=== PATIENT | male | born 1985 | race Caucasian/White ===

== ENCOUNTER 2020-09-15 17:53 | Emergency (ER) | payer SELFPAY ==
[~2020-09-15] VITALS: Ht 180.3 cm; Wt 95.3 kg
[2020-09-15 18:06] VITALS: BP 140/89
--- NOTE | 2020-09-15 18:32 | NUR ---
34/M C/O LOSS OF TASTE/SMELL, MYALGIAS, NASAL CONGESTION, OCCASIONAL HEADACHE X 2-3 DAYS. STATES CLOSE CONTACT WITH COW[employer]ER WHO TESTED COVID POS ON 09/11. 0 PAIN AT THIS TIME, APPEARS NAD. PT REQUESTING COVID TEST. HX- DENIES NKA
[2020-09-15 18:47] VITALS: BP 140/89
--- NOTE | 2020-09-15 18:47 | NUR ---
Patient discharged with v/s stable. Written and verbal after care instructions given and explained. Patient alert, oriented and verbalized understanding of instructions. Ambulatory with steady gait. All questions addressed prior to discharge. ID band removed. Patient advised to follow up with PMD. Rx of IBUPROFEN AND PROMETHAZINE DM given. Patient educated on indication of medication including possible reaction and side effects. Opportunity to ask questions provided and answered.
--- NOTE | 2020-09-15 19:10 | NUR ---
PER ONUR GUEVARA, CALL PATIENT WITH COVID XIOMARA RESULT--ENDORSED TO [facility] [employer]NA[employer]
--- NOTE | 2020-09-15 19:12 | NUR ---
NOVEL COVID (WITH PAPERWORK) AND COVID XIOMARA SWABS DROPPED OFF AT LAB
== END 2020-09-15 18:47 | disposition home or self-care (01) ==
LOC: MED 17:53
DX: U07.1 COVID-19 (principal); R43.8 Other disturbances of smell and taste; M79.10 Myalgia, unspecified site; R51.9 Headache, unspecified
CPT/HCPCS: 87426; 99283; U0003